=== PATIENT | female | born 1995 | race African-American/Black ===

== ENCOUNTER 2016-09-17 07:55 | Day surgery (SDC) | payer OTHER ==
--- NOTE | 2016-09-11 11:51 | HP ---
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 Patient's mass has increased in size approx 1 cm in all directions. Patient is now to undergo a WE of this mass. History Source: Patient Limitations to Obtaining History: No Limitations - Past Medical History Additional Past Medical History: none - Past Surgical History Past Surgical History: Yes: None - Smoking History Smoking history: Never smoked Home Medications - Allergies Allergies/Adverse Reactions: Allergies Allergy/AdvReac Type Severity Reaction Status Date / Time No Known Allergies Allergy Verified 09/11/16 11:50 - Home Medications Home Medications: Ambulatory Orders NK [No Known Home Medication] 09/11/16 Family Disease History - Family Disease History Family Disease History: CA: Father (colon cancer) Other Family History: paternal uncle-gastric cancer Review of Systems - Review of Systems Constitutional: reports: No Symptoms Physical Examination Constitutional: Yes: Well Nourished, Calm Breast(s): Yes: Right (Palpable right breast mass at approx 1 oclock. No other suspicious masses or adenopathy noted bilaterally.) Problem List - Problems (1) Breast mass, right Code(s): N63 - UNSPECIFIED LUMP IN BREAST Assessment/Plan Wide excision of right breast mass
[2016-09-11 16:03] VITALS: BMI 19.2
[2016-09-17] MEDS ORDERED: MIDAZOLAM HCL 2 MG/2 ML SINGLE DOSE VIAL ONE (09:26)
[2016-09-17] MEDS ORDERED: ROCURONIUM BROMIDE 50 MG/5 ML VIAL ONE ×2 (09:26→10:10)
[2016-09-17] MEDS ORDERED: SUCCINYLCHOLINE CHLORIDE 200 MG/10 ML VIAL ONE ×2 (09:27→10:12)
[2016-09-17] MEDS ORDERED: ONDANSETRON 4 MG/2 ML VIAL IVPUSH PRN (09:36)
[2016-09-17] MEDS ORDERED: oxyCODONE HCL 5 MG TABLET PO PRN ×2 (09:36)
[2016-09-17] MEDS ORDERED: HYDROmorphone HCL CARPU-JECT 1 MG/1 ML DISP.SYRIN IVPUSH PRN (09:36)
[2016-09-17] MEDS ORDERED: LACTATED RINGERS SOLUTION 1,000 ML IV SCH (09:45)
[2016-09-17] MEDS ORDERED: ISOSULFAN BLUE 10 MG/ML VIAL SQ ONE (09:49)
[2016-09-17] MEDS ORDERED: PROPOFOL 20 ML ONE (10:21)
[2016-09-17] MEDS ORDERED: ONDANSETRON 4 MG/2 ML VIAL IVPB PRN (11:09)
[2016-09-17] MEDS ORDERED: KETOROLAC TROMETHAMINE 30 MG/1 ML VIAL IVPUSH PRN (11:09)
[2016-09-17] MEDS ORDERED: DEXTROSE 5%-0.45% SALINE 1,000 ML IV SCH (11:15)
[2016-09-17 12:50] VITALS: TEMP 98.2
[2016-09-17 13:23] VITALS: BP 122/74; PULSE 86
--- NOTE | 2016-09-19 12:42 | OP ---
DATE OF OPERATION: 09/17/2016 PREOPERATIVE DIAGNOSIS: Right breast mass. POSTOPERATIVE DIAGNOSIS: Right breast mass. PROCEDURE: Right breast mass wide excision. ANESTHESIA: IV sedation with local. ATTENDING SURGEON: Tayler Bullard MD ESTIMATED BLOOD LOSS: Minimal. COMPLICATIONS: None. DESCRIPTION OF PROCEDURE: Patient was made aware of the risks and benefits of the procedure and consented. She was placed in a supine position. After IV sedation was administered, the operative site was prepped and draped in the usual sterile fashion. Local anesthesia was performed by a 1:1 mixture of 1% lidocaine mixed with 0.25% bupivacaine. Curvilinear periareolar incision was made using electrocautery. A thick skin flap was made to the mass. The mass was then brought out through the wound and bluntly and sharply excised and submitted to Pathology. The wound was copiously irrigated with normal saline. Hemostasis maintained by electrocautery. The deep tissues were closed with 3-0 Vicryl, followed by running subcuticular 4-0 Monocryl. Dermabond was then applied, and the patient, having tolerated the procedure well, was transferred to the recovery room in excellent condition. TAYLER BULLARD M.D. [id number]
--- NOTE | 2016-09-19 14:25 | PATH ---
Surgical Pathology Report Patient Name: MAYTE SCHWARZ [facility]. Rec. #: [id number] /Age/Gender: 1995 (Age: 20) / F Account: [id number] Location: [facility] AMBUL[facility]ORY Taken: 09/17/2016 Received: 09/17/2016 Reported: 09/19/2016 Physicians: Tayler Bullard M.D. Specimen(s) Received RIGHT BREAST MASS Clinical History Right breast mass. Final Diagnosis BREAST, RIGHT, MASS, EXCISION: FIBROADENOMA. Electronically Signed Mimi Boykin M.D. Gross Description Received in formalin labeled "right breast mass," is a 4.5 x 3.6 x 3.2 cm irregular, unoriented, firm to rubbery mass. There is no needle localization wire present. There is no skin present. The mass is inked blue and serially sectioned. Sectioning reveals homogeneous velazquez, lobulated, rubbery parenchyma. No areas of hemorrhage or necrosis are identified. [employer] sections are sequentially submitted in 6 cassettes. Total formalin fixation time: Approximately 24 hours 09/18/201609/18/2016
== END 2016-09-17 13:25 | disposition home or self-care (01) ==
LOC: FASU 07:55
PROVIDERS: ATTEND Surgery Surgical Oncology
PROC: 0HBT0ZX Excision of Right Breast, Open Approach, Diagnostic (ICD-10-PCS; principal; 2016-09-17 10:31)
DX: D24.1 Benign neoplasm of right breast (principal)
CPT/HCPCS: 84703; 88307-TC; 94760